=== PATIENT | male | born 1960 | race American Indian/Alaskan Native ===

== ENCOUNTER 2022-07-25 09:31 | Emergency (ER) | payer SELFPAY ==
[2022-07-25] MEDS ORDERED: Sodium Chloride 0.9% 1,000 ML IV STA (10:21)
[2022-07-25] MEDS ORDERED: Ondansetron 4 MG/2 ML SDV IVPUSH ONE (10:21)
[2022-07-25] MEDS ORDERED: Sodium Chloride 0.9% 10 ML Syringe FLUSH PRN (10:21)
[2022-07-25] MEDS ORDERED: Ketorolac 30 MG/ML SDV IVPUSH ONE (10:22)
[2022-07-25 11:56] LABS: CORONAVIRUS COVID-19 NAA POSITIVE (NEGATIVE)
== END 2022-07-25 13:27 | disposition home or self-care (01) ==
LOC: JD.ED 09:31
DX: U07.1 COVID-19 (principal)
CPT/HCPCS: 0241U; 36415; 71045; 80053; 83690; 85025; 96361; 96374; 96375; 99284; J1885; J2405; J3490; J7030; 99283